=== PATIENT | male | born 1960 | race Caucasian/White ===

== ENCOUNTER 2017-06-18 17:54 | Inpatient (IN) | payer OTHER ==
[~2017-06-18] VITALS: Ht 185.4 cm; Wt 91.8 kg
[2017-06-18 18:39] LABS: HEMATOCRIT 51.1 % (39.2-51.8); HEMOGLOBIN 17.1 g/dL (13.7-18.0); WHITE BLOOD COUNT 8.3 x10^3/uL (3.4-10)
[2017-06-18 18:50] LABS: BLOOD UREA NITROGEN 11 mg/dL (7-18)
[2017-06-18] MEDS ORDERED: SODIUM CHLORIDE 0.9% 1,000ML IVBOLUS ONE (19:00)
[2017-06-18] MEDS ORDERED: SODIUM CHLORIDE FLUSH 10ML SYR IVF ONE (19:00)
[2017-06-18 20:20] VITALS: BP 131/82
[2017-06-18] MEDS ORDERED: GUAIFENESIN/DM 200-20MG, 10ML UDC PO PRN (21:00)
[2017-06-18] MEDS ORDERED: ONDANSETRON 2MG/ML, 2ML IVPush PRN (21:00)
[2017-06-18] MEDS: SODIUM CHLORIDE 0.9% 1,000 ML IV SCH (21:31)
[2017-06-19 01:50] VITALS: BP 100/63
[2017-06-19] MEDS: SODIUM CHLORIDE 0.9% 1,000 ML IV SCH (06:46)
[2017-06-19 07:45] VITALS: BP 110/66
[2017-06-19] MEDS ORDERED: HOLD MEDICATION MC PRN (12:30)
[2017-06-19 13:58] VITALS: BP 112/69
[2017-06-19] MEDS ORDERED: FENTANYL PF 100 MCG/2ML ONE (14:53)
[2017-06-19] MEDS ORDERED: MIDAZOLAM 1 MG/ML, 5ML ONE (14:53)
[2017-06-19 19:03] VITALS: BP 124/77
[2017-06-20 02:18] VITALS: BP 91/56
[2017-06-20 06:56] VITALS: BP 98/54
[2017-06-20] MEDS ORDERED: PNEUMOCOCCAL 23 VACCINE IM-VACC ONE (09:00)
[2017-06-20] MEDS ORDERED: SODIUM CHLORIDE 0.9%, 500ML IVBOLUS ONE (11:00)
[2017-06-20 14:10] VITALS: BP 99/60
[2017-06-20] MEDS ORDERED: OMNIPAQUE 350 MG/ML, 75ML BOTTLE ONE (17:14)
[2017-06-20 18:34] VITALS: BP 121/66
[2017-06-21 01:03] VITALS: BP 80/58
[2017-06-21 08:15] VITALS: BP 100/66
[2017-06-21 09:47] LABS: HEMATOCRIT 45.2 % (39.2-51.8); HEMOGLOBIN 15.5 g/dL (13.7-18.0)
[2017-06-21 09:59] LABS: BLOOD UREA NITROGEN 8 mg/dL (7-18)
[2017-06-21] MEDS ORDERED: SODIUM CHLORIDE 0.9% 1,000ML IVBOLUS ONE (12:00)
[2017-06-21 14:05] VITALS: BP 120/69
[2017-06-21] MEDS ORDERED: NALOXONE 1 MG/ML, 2ML ONE (15:06)
[2017-06-21] MEDS ORDERED: FLUMAZENIL 0.1 MG/1 ML, 5ML ONE (15:06)
[2017-06-21] MEDS ORDERED: MIDAZOLAM 1 MG/ML, 5ML ONE (15:06)
[2017-06-21] MEDS ORDERED: FENTANYL PF 100 MCG/2ML ONE (15:06)
[2017-06-21] MEDS ORDERED: LIDOCAINE 2%, 20ML ONE (15:09)
[2017-06-21] MEDS ORDERED: LIDOCAINE 1%, 20ML ONE (15:27)
[2017-06-21 19:22] VITALS: BP 107/53
[2017-06-22 01:42] VITALS: BP 96/55
[2017-06-22 07:56] VITALS: BP 112/62
[2017-06-22] MEDS ORDERED: LIDOCAINE 4% TOPICAL SOLUTION 50 ML ONE (10:27)
[2017-06-22] MEDS ORDERED: LIDOCAINE GEL 2%, 5ML ONE (10:27)
[2017-06-22] MEDS ORDERED: LIDOCAINE 2%, 20ML ONE (10:27)
[2017-06-22 14:35] VITALS: BP 105/66
[2017-06-22 20:02] VITALS: BP 114/70
[2017-06-23 03:01] VITALS: BP 91/54
[2017-06-23 05:42] LABS: HEMATOCRIT 43.8 % (39.2-51.8); HEMOGLOBIN 14.7 g/dL (13.7-18.0)
[2017-06-23 06:00] LABS: BLOOD UREA NITROGEN 10 mg/dL (7-18)
[2017-06-23 07:48] VITALS: BP 95/58
[2017-06-23] MEDS: ENOXAPARIN 100 MG/ML SQ SCH (13:58)
[2017-06-23 14:44] VITALS: BP 112/71
[2017-06-23 19:21] VITALS: BP 107/62
[2017-06-24 01:18] VITALS: BP 103/62
[2017-06-24] MEDS: ENOXAPARIN 100 MG/ML SQ SCH ×2 (01:27→14:20)
[2017-06-24 07:09] VITALS: BP 98/60
[2017-06-24 08:07] LABS: ANTITHROMBIN III ACTIVITY 112 % (75-135)
[2017-06-24 08:40] LABS: PROTEIN S FREE 84 % (57-157); PROTEIN S FUNCTIONAL 85 % (63-140); PROTEIN S TOTAL 100 % (60-150)
[2017-06-24 12:53] VITALS: BP 104/64
[2017-06-24] MEDS ORDERED: APIX5TAB PO (13:51)
== END 2017-06-24 16:16 | disposition home or self-care (01) | DRG 168 ==
LOC: ED 19:37 → EDIP 19:41 → 3NE 20:18 → DCLOUNGE 06-24 15:30
PROVIDERS: ADMIT Hospitalist; ATTEND Family Medicine
PROC: 0B9F8ZX Drainage of Right Lower Lung Lobe, Via Natural or Artificial Opening Endoscopic, Diagnostic (ICD-10-PCS; 2017-06-19)
PROC: 06H03DZ Insertion of Intraluminal Device into Inferior Vena Cava, Percutaneous Approach (ICD-10-PCS; principal; 2017-06-21)
DX: I26.99 Other pulmonary embolism without acute cor pulmonale (principal); J44.9 Chronic obstructive pulmonary disease, unspecified; F17.210 Nicotine dependence, cigarettes, uncomplicated; R09.02 Hypoxemia; Z79.01 Long term (current) use of anticoagulants
CPT/HCPCS: 31624; 36014; 36415; 37191; 71010; 71260; 75605; 75726; 75741; 76937; 80048; 81241; 82040; 84153; 85025; 85300; 85301; 85305; 85306; 85307; 85610; 85730; 87015; 87070; 87102; 87116; 87205; 87206; 88108; 88112; 88312; 90732; 93005; 93306; 93970; 99152; 99153; 99156; 99157; 99285; J1650; J2250; J3010; J3490; Q9967; C1751; C1760; C1769; C1880; C1894; J2310; J7030; J7040

== ENCOUNTER 2017-08-28 07:50 | Day surgery (SDC) | payer OTHER ==
[~2017-08-28] VITALS: Ht 182.9 cm; Wt 104.0 kg
[~2017-08-28 07:50] MED LIST: APIX5TAB PO
[2017-08-28 08:25] VITALS: BP 109/79
[2017-08-28] MEDS ORDERED: SODIUM CHLORIDE 0.9% 1,000 ML IV SCH (08:30)
[2017-08-28] MEDS ORDERED: LIDOCAINE 1%, 20ML ONE (09:30)
[2017-08-28] MEDS ORDERED: MIDAZOLAM 1 MG/ML, 5ML ONE (10:13)
[2017-08-28] MEDS ORDERED: FENTANYL PF 100 MCG/2ML ONE (10:13)
[2017-08-28] MEDS ORDERED: NALOXONE 1 MG/ML, 2ML ONE (10:14)
[2017-08-28] MEDS ORDERED: FLUMAZENIL 0.1 MG/1 ML, 5ML ONE (10:14)
[2017-08-28] MEDS ORDERED: VISIPAQUE 320MG/ML, 50ML BOTTLE ONE (13:00)
== END 2017-08-28 12:15 ==
LOC: OUT 07:50
PROVIDERS: ATTEND Nurse Practitioner Family
DX: Z45.2 Encounter for adjustment and management of vascular access device (principal); Z86.711 Personal history of pulmonary embolism; Z87.891 Personal history of nicotine dependence; Z88.0 Allergy status to penicillin; Z91.09 Other allergy status, other than to drugs and biological substances
CPT/HCPCS: 37193; 76937; C1751; C1769; C1773; C1894; J2250; J3010; J3490; J7030; Q9967; J2310

== ENCOUNTER → 2018-08-23 | Outpatient (CLI) | payer OTHER | END | disposition home or self-care (01) | LOC: CFH 14:16 | PROVIDERS: ATTEND Nurse Practitioner Family | DX: Z12.2 Encounter for screening for malignant neoplasm of respiratory organs (principal); Z87.891 Personal history of nicotine dependence; J43.8 Other emphysema | CPT/HCPCS: G0297 ==

== ENCOUNTER → 2019-08-12 | Outpatient (CLI) | payer BC | END | disposition home or self-care (01) | LOC: CFH 09:22 | PROVIDERS: ATTEND Nurse Practitioner Primary Care | DX: J94.8 Other specified pleural conditions (principal); J98.4 Other disorders of lung; J84.10 Pulmonary fibrosis, unspecified | CPT/HCPCS: G0297 ==